=== PATIENT | male | born 1995 | race Caucasian/White ===

== ENCOUNTER 2018-02-07 16:15 | Emergency (ER) | payer OTHER ==
[2018-02-07 16:36] VITALS: BP 135/72
--- NOTE | 2018-02-07 17:23 | UC ---
Throat Pain/Nasal Filiberto HPI - HPI Summary HPI Summary: 22 y/o male presents to the urgent care c/o persistent cough w/ moderate yellowish PND and nasal congestion w/ yellowish nasal discharge for the past week. Pt states his symptoms have worsen w/ nasal pressure, B/L ear pressure, sinus pain and a dry cough that he sometimes feel w/ nausea. Pt w/ swallowing is 3/10. He started to take Dayquill PO since yesterday. Today he feels fatigue. However he works in the [employer] at night time and he is not sleeping well. Pt denies fever, dizziness, chest pain, abdominal pain, N/V/D. Pt is UTD w/ all vaccines for his age. - History of Current Complaint Chief Complaint: UCRespiratory Stated Complaint: SORE THROAT/COUGH Time Seen by Provider: 02/07/18 17:18 Hx Obtained From: Patient, Family/Director Sports - mother Onset/Duration: Gradual Onset, Lasting Weeks - 1 week, Still Present, Worse Since - 2 days Severity: Moderate Pain Intensity: 5 - sinus pain Pain Scale Used: 0-10 Numeric Cough: Nonproductive - w/ moderate +PND Associated Signs & Symptoms: Positive: Sinus Discomfort, Nasal Discharge - yellowish - Epiglottits Risk Factors Epiglottis Risk Factors: Negative - Allergies/Home Medications Allergies/Adverse Reactions: Allergies Allergy/AdvReac Type Severity Reaction Status Date / Time No Known Allergies Allergy Verified 02/07/18 16:33 Home Medications: Home Medications D-Methorphan/PE/Acetaminophen [Day Time Cold-Flu Liquid] 10 ml PO ONCE 02/07/18 [History Confirmed 02/07/18] PMH/Surg Hx/FS Hx/Imm Hx Previously Healthy: Yes Respiratory History: Asthma Other Cancer History: leukemia - Surgical History Surgical History: Yes Surgery Procedure, Year, and Place: POWERPORT INSERTION - Family History Known Family History: Positive: Cardiac Disease, Hypertension, Diabetes Family History: Dyslipidemia - Social History Occupation: Employed Full-time Lives: With Family Alcohol Use: Occasionally Substance Use Type: None Smoking Status (MU): Never Smoked Tobacco - Immunization History Vaccination Up to Date: Yes Review of Systems All Other Systems Reviewed And Are Negative: Yes Constitutional: Positive: Fatigue Skin: Positive: Negative Eyes: Positive: Negative ENT: Positive: Sore Throat - today, Nasal Discharge - yellowish, Sinus Congestion, Sinus Pain/Tenderness, Other - Moderate yellowish PND Respiratory: Positive: Cough - dry Cardiovascular: Positive: Negative Gastrointestinal: Positive: Negative Genitourinary: Positive: Negative Motor: Positive: Negative Neurovascular: Positive: Negative Musculoskeletal: Positive: Negative Neurological: Positive: Negative Psychological: Positive: Negative Is Patient Immunocompromised?: No Physical Exam - Summary Physical Exam Summary: Vitals: reviewed General: Well developed, well-nourished male patient with NAD. Head and face: Normocephalic and atraumatic, Positive tenderness over the frontal and maxillary sinuses.. Eyes: PERRLA, EOMI x 2. Normal conjunctiva. No eye discharge. ENT: Ears and TM with normal limits. Nose: edematous and erythematous nasal mucosa with with yellowish discharge and erythematous mucosa. Pharynx with mild erythema, no exudate. +moderate yellowish PND. Uvula in the mid line w/ erythema, B/L mild tonsil enlargement w/ o any erythema Neck: Supple, no JVD, no carotid bruits and no lymphadenopathy. Lungs: clear, no rales, no rhonchi, no wheezes. CVS: RRR, S1 and S2 present no murmurs or gallops appreciated. Abdomen: soft nontender with positive bowel sounds. Extremities: no edema noted. Neuro: WNL. Skin: warm and dry Triage Information Reviewed: Yes Vital Signs: Initial Vital Signs Temp 99.5 F 02/07/18 16:31 Pulse 81 02/07/18 16:31 Resp 17 02/07/18 16:31 BP 135/72 02/07/18 16:31 Pulse Ox 100 02/07/18 16:31 Throat Pain/Nasal Course/Dx - Course Course Of Treatment: 22 y/o male presents to the urgent care c/o persistent cough w/ moderate yellowish PND and nasal congestion w/ yellowish nasal discharge for the past week. Pt states his symptoms have worsen w/ nasal pressure, B/L ear pressure, sinus pain and a dry cough that he sometimes feel w / nausea. Pt w/ swallowing is 3/10. He started to take Dayquill PO since yesterday. Today he feels fatigue. However he works in the [employer] at night time and he is not sleeping well. Pt denies fever, dizziness, chest pain, abdominal pain, N/V/D. Pt is UTD w/ all vaccines for his age. Hx obtained. Pt w/ acute bacterial sinusitis and uvulitis on examination. Pt with 1 week of symptoms getting worse. Pt Rx Augmentin PO and flonase nasal spray. Pt given a refill for his albuterol inhaler. Discharge instructions explained to Pt. Advised to Return to the clinic or [facility] if symptoms do not improve. Mother and Pt understood and agreed with plan of care. - Differential Dx/Diagnosis Differential Diagnosis/HQI/PQRI: Influenza, Laryngitis, Mononucleosis, Pharyngitis, Sinusitis, Tonsillitis, URI, Other - bronchitis Provider Diagnosis: Acute sinusitis, Uvulitis Discharge - Sign-Out/Discharge Documenting (check all that apply): Patient Departure - D/c home All imaging exams completed and their final reports reviewed: No Studies - Discharge Plan Condition: Stable Disposition: HOME Prescriptions: Albuterol HFA INHALER* [Ventolin HFA Inhaler*] 1 - 2 puff INH Q6H PRN #1 mdi PRN Reason: Cough Amoxicillin/Clavulanate TAB* [Augmentin TAB 875*] 875 mg PO BID #10 tab Fluticasone NASAL SPRAY 50MCG* [Flonase NASAL SPRAY 50MCG*] 2 spray BOTH NARES DAILY #1 btl Patient Education Materials: Sinusitis (ED), Uvulitis (ED) Forms: *Work Release Referrals: Butch Villalta MD [Primary Care Provider] - 3 Days Additional Instructions: 1- Please increase fluid intake and rest. take full course of antibiotic to avoid resistance 2-Use Flonase as directed to help drain fluid. Also buy saline drops to clear sinuses 3-Continue taking Dayquill PO and use your inhaler to alleviate cough. 4-Return to the clinic or PCP in 3 days if symptoms do not improve for further management and treatment - Billing Disposition and Condition Condition: STABLE Disposition: Home - Attestation Statements Provider Attestation: I was available for consult. This patient was seen by the ANAYELI. The patient was not presented to, seen by, or examined by me. -Mau
== END 2018-02-07 17:45 | disposition home or self-care (01) ==
LOC: UCCORT 16:15
DX: K12.2 Cellulitis and abscess of mouth (principal); J01.90 Acute sinusitis, unspecified
CPT/HCPCS: 99202; G0463